=== PATIENT | female | born 1980 | race Caucasian/White ===

== ENCOUNTER → 2022-03-27 | Outpatient (CLI) | payer BC ==
--- NOTE | 2022-03-27 17:48 | CT ---
EXAMINATION TYPE: CT soft tissue neck w con DATE OF EXAM: 03/27/2022 HISTORY: left neck nodule, no palpable. Globus sensation. COMPARISON: NONE CT DLP: 470 mGycm. Automated Exposure Control for Dose Reduction was Utilized. TECHNIQUE: CT scan of the neck is performed with IV Contrast, patient injected with 100 mL of Isovue 300, axial images are obtained, coronal and sagittal reformatted images are reviewed. FINDINGS: Airway: No gross abnormality seen. Parotid/submandibular glands: No gross abnormality seen. Carotid/Vascular Structures: No significant abnormality is seen. Osseous Structures: Slight scoliotic curvature positioning on coronal images. Other: No abnormal greater than 1 cm neck adenopathy. IMPRESSION: No significant abnormality is seen.
== END | disposition home or self-care (01) ==
LOC: RADCTMAIN 16:50
PROVIDERS: ATTEND Otolaryngology
DX: R09.89 Other specified symptoms and signs involving the circulatory and respiratory systems (principal)
CPT/HCPCS: 70491; Q9967